=== PATIENT | female | born 1970 | race American Indian/Alaskan Native ===

== ENCOUNTER 2019-04-18 14:52 | Outpatient (CLI) | payer BC ==
--- NOTE | 2019-04-18 15:40 | Mammography Report ---
Screening mammogram: Routine views demonstrate heterogeneously dense fibroglandular pattern. Two nodular asymmetries are identified in the right breast. The breast pattern is not otherwise remarkable. CAD used. Impression: Right breast asymmetries. Recommendation: Prior exams are being requested for comparison before final recommendation. BI-RADS CATEGORY: 0 = Needs additional imaging evaluation ACR BI-RADS MAMMOGRAPHIC CODES: 0 = Needs additional imaging evaluation; 1 = Negative; 2 = Benign; 3 = Probably benign; 4 = Suspicious; 5 = Malignant; 6 = Known biopsy-proven malignancy COMMENT: 1. Dense breast tissue, i.e., adenosis, fibrocystic changes, etc., may obscure an underlying neoplasm. 2. Approximately 10% of cancers are not detected with mammography. 3. A negative mammography report should not delay biopsy if a clinically suspicious mass is present.
== END 2019-04-18 14:53 | disposition home or self-care (01) ==
LOC: SPVWC 14:52
PROVIDERS: ATTEND Obstetrics & Gynecology
DX: Z12.31 Encounter for screening mammogram for malignant neoplasm of breast (principal); E78.00 Pure hypercholesterolemia, unspecified; K21.9 Gastro-esophageal reflux disease without esophagitis
CPT/HCPCS: 77067